=== PATIENT | male | born 1980 | race Caucasian/White ===

== ENCOUNTER → 2017-02-23 | Outpatient (CLI) | payer OTHER ==
[~2017-02-23] MED LIST: ABL/5 PO; LAMO200T32 PO
[2017-02-23 12:47] LABS: CALCIUM 8.9 mg/dl (8.5-10.1)
[2017-02-23 12:56] LABS: ALB/GLOB RATIO 1.3 (0.9-2); ALT/SGPT 26 U/L (12-78); AST/SGOT 19 U/L (15-37); BLOOD UREA NITROGEN 13 mg/dl (7-18); BUN/CREATININE RATIO 15.8 (10-20); CARBON DIOXIDE 24 mmol/L (21-32); CHLORIDE 107 mmol/L (98-107); CHOLESTEROL 155 mg/dl (0-200); CREATININE 0.84 mg/dl (0.60-1.40); GLUCOSE 87 mg/dl (70-99); POTASSIUM 3.8 mmol/L (3.5-5.1); SODIUM 140 mmol/L (136-145); TRIGLYCERIDES 67 mg/dl (0-150); VERY LOW DENSITY LIPOPROT CALC 13 mg/dl
[2017-02-23 13:06] LABS: ALKALINE PHOSPHATASE 72 U/L (45-117); CHOLESTEROL/HDL RATIO 2.5; HDL CHOLESTEROL 63 mg/dl; LDL CHOLESTEROL CALCULATED 79 mg/dl
== END | disposition home or self-care (01) ==
LOC: C.LAB1850 11:29
PROVIDERS: ATTEND Physician Assistant Medical
DX: Z13.6 Encounter for screening for cardiovascular disorders (principal); E01.0 Iodine-deficiency related diffuse (endemic) goiter

== ENCOUNTER 2017-12-05 07:05 | Emergency (ER) | payer OTHER ==
[~2017-12-05] VITALS: Ht 182.9 cm; Wt 72.0 kg
[2017-12-05 07:07] VITALS: TEMP 36.3; Ht 182.9 cm; Wt 72.0 kg
[2017-12-05] MEDS ORDERED: ONDANSETRON INJ 2 MG/ML 2 ML VIAL IV STA (07:17)
[2017-12-05] MEDS ORDERED: SODIUM CHLORIDE 0.9% 1000ML 1,000 ML IV STA (07:17)
[2017-12-05] MEDS ORDERED: MoRPHine SULFATE 10 MG/ML CARP/VIAL IV STA (07:17)
[2017-12-05 08:05] LABS: BASO % 0.3 %; BASO ABS # 0.03 K/uL (0-0.2); EOS % 0.7 %; EOS ABS # 0.06 K/uL (0-0.5); HEMATOCRIT 43.3 % (42-52); HEMOGLOBIN 15.5 g/dL (14.0-18.0); IG# 0.02 K/uL (0.00-0.02); LYMPH % 20.5 %; LYMPH ABS # 1.82 K/uL (1.2-3.4); MEAN CELL VOLUME 86.6 fL (80-100); MEAN CORPUSCULAR HGB CONC 35.8 g/dl (32-36); MEAN PLATELET VOLUME 11.2 fL (7.4-10.4); MONO % 6.9 %; MONO ABS # 0.61 K/uL (0.11-0.59); NEUT % 71.4 %; NEUT ABS # 6.32 K/uL (1.4-6.5); PLATELET COUNT 193 K/uL (130-400); RED CELL DISTRIBUTION WIDTH CV 13.2 % (11.5-14.5); RED CELL DISTRIBUTION WIDTH SD 41.5 fL (36.4-46.3); WHITE BLOOD COUNT 8.86 K/uL (4.8-10.8)
[2017-12-05] MEDS ORDERED: KETOROLAC TROMETHAMINE 30 MG/ML VIAL IV STA (08:13)
--- NOTE | 2017-12-05 08:16 | DIAGNOSTIC IMAGING REPORT ---
CT SCAN OF THE ABDOMEN AND PELVIS WITHOUT CONTRAST CLINICAL HISTORY: Left flank pain and hematuria COMPARISON STUDY: No previous studies for comparison. TECHNIQUE: CT scan of the abdomen and pelvis was performed from the lung bases to the proximal femurs. Images are reviewed in the axial, sagittal, and coronal planes. IV contrast was not administered for this examination. A dose lowering technique was utilized adhering to the principles of ALARA. CT DOSE: 742.94 mGycm FINDINGS: Lower chest: The heart is normal in size and configuration, without pericardial effusion. The lung bases and pleural spaces are clear. Liver: The unenhanced liver is normal in size, contour, and attenuation. There is no intrahepatic biliary ductal dilatation. Gallbladder: Unremarkable. Spleen: There is a 24 mm splenic mass, possibly cystic. Pancreas: Unremarkable. Adrenal glands: Unremarkable. Kidneys: No renal calculi are visualized. There is left-sided hydronephrosis and proximal hydroureter. There is a 6 x 4 x 3 mm proximal left ureteral calculus. Bowel: There are no transition zones indicate bowel obstruction. The appendix appears normal. There is colonic diverticulosis. There are no acute peridiverticular inflammatory changes. There are fluid-filled small bowel loops, likely secondary to a mild ileus. Peritoneum: There is no intraperitoneal free air or abdominal ascites. Vasculature: The abdominal aorta is normal in course and caliber. Adenopathy: None. Pelvic viscera: The bladder, and pelvic viscera are unremarkable. Skeletal structures: There is bilateral L5 spondylolysis IMPRESSION: 1. 6 x 4 x 3 mm obstructing proximal left ureteral calculus at the L3-4 level 2. No evidence of bowel obstruction. No evidence of free air 3. Fluid-filled small bowel loops likely secondary to an ileus 4. Normal appendix. No evidence of diverticulitis 5. 24 mm splenic lesion, possibly cystic Electronically signed by: Pasquale Santana M.D. 12/05/2017 8:14 AM Dictated Date/Time: 12/05/2017 8:10 AM
[2017-12-05 08:22] LABS: ALBUMIN 4.1 gm/dl (3.4-5.0); CALCIUM 8.8 mg/dl (8.5-10.1); CREATININE 1.13 mg/dl (0.60-1.40); POTASSIUM 3.7 mmol/L (3.5-5.1)
[2017-12-05 08:25] LABS: TOTAL PROTEIN 7.7 gm/dl (6.4-8.2)
[2017-12-05 08:38] VITALS: BP 129/86; PULSE 73; O2SAT 100
[2017-12-05] MEDS ORDERED: HYDR-5688 PO (09:02)
[2017-12-05] MEDS ORDERED: TAMS0.4C38 PO (09:02)
--- NOTE | 2017-12-05 16:09 | EMERGENCY ROOM VISIT NOTE ---
ED Visit Note First contact with patient: 07:10 Chief Complaint: Abdominal pain. History of Present Illness: Mr. Bull is a 37 year-old white male who ambulates into the ED complaining of anterior lateral left lower quadrant abdominal pain. Historically patient reports denies any specific abdominal disorders or surgeries. Patient reports an acute onset of left anterior lateral lower quadrant quadrant abdominal pain that started approximately 3 hours ago. Since that time the pain has been constant. The pain is currently described as sharp. The pain is nonradiating. He has not identified any aggravating or alleviating factors related to the pain. He reports he felt he might of been constipated so he took a stool softener but vomited the medication up. Associated with his symptoms he has been having nausea and vomiting. Additionally he reports intermittently he works out with weights and does question if this could possibly be a hernia of some type. Patient denies fevers, chills, sweats, skin eruptions, skin color changes, upper respiratory tract symptoms, shortness of breath, chest pain, diarrhea, constipation, rectal bleeding, black/tarry stools, urinary symptoms, hematuria, back/flank pain, lower extremity weakness/numbness/tingling, genital paresthesias, bowel and bladder dysfunction. Review of Systems: As noted above in history of present illness. All body systems were reviewed and found to be negative as noted above. Past Medical History: Patient denies. Current Medications: Patient denies. Allergies to Medications: Patient denies. Social History: Patient is currently employed; he feels safe in his home environment; he denies tobacco use. Physical Examination: Vital Signs: Date Time Temp Pulse Resp B/P (MAP) Pulse Ox O2 Delivery O2 Flow Rate FiO2 12/05/17 09:10 18 12/05/17 08:38 73 18 129/86 100 Room Air 12/05/17 07:07 36.3 123 22 137/99 92 Room Air GENERAL: 37-year-old male in moderate distress due to pain, nontoxic-appearing, afebrile and hemodynamically stable. NEUROLOGICAL: Awake, alert and oriented to person, place and time. Answering questions appropriately and following commands. Normal gait. Good hand eye coordination. SKIN: Warm, dry and pink. No soft tissue eruptions or trauma noted. HEENT: Atraumatic and normocephalic. PERRLA. Sclera white and conjunctiva pink. Oral cavity moist and pink. Pharynx is nonerythematous or edematous. Speech normal. No lymphadenopathy. Trachea midline. No jugular venous distention. BACK: No tenderness over the bony spine. No CVA tenderness. THORAX: Lungs sounds are clear to auscultation and equal bilaterally with symmetrical chest wall. No wheezing, rales or rhonchi. No crepitus, tenderness , subcutaneous air or deformities noted. HEART: Regular rate and rhythm. No gallops, rubs or murmurs are appreciated. ABDOMEN: Flat, soft and nontender. Positive bowel sounds in all quadrants. No guarding, rigidity or organomegaly. GENITALS: Mature, circumcised penis. No external tags or lesions. No local erythema or edema. No testicular tenderness. Normal testicular lie. No palpable masses in the canal or scrotum. EXTREMITIES: Moves all extremities well on command and with purpose. All distal neurovascular statuses are intact and equal bilaterally. ED Course: Patient is assessed as noted above. Patient's medication list was reviewed. Laboratory Testing: Test 12/05/17 07:30 12/05/17 07:40 Range/Units Urine Color YELLOW Urine Appearance CLOUDY CLEAR Urine pH 7.0 4.5-7.5 Urine Specific [place] 1.022 1.000-1.030 Urine Protein NEG NEG Urine Glucose (UA) NEG NEG Urine Ketones NEG NEG Urine Occult Blood 2+ NEG Urine Nitrite NEG NEG Urine Bilirubin NEG NEG Urine Urobilinogen NEG NEG Urine Leukocyte Esterase NEG NEG Urine WBC (Auto) 1-5 0-5 /hpf Urine RBC (Auto) >30 0-4 /hpf Urine Hyaline Casts (Auto) 1-5 0-5 /lpf Urine Epithelial Cells (Auto) 20-30 0-5 /lpf Urine Bacteria (Auto) NEG NEG White Blood Count 8.86 4.8-10.8 K/uL Red Blood Count 5.00 4.7-6.1 M/uL Hemoglobin 15.5 14.0-18.0 g/dL Hematocrit 43.3 42-52 % Mean Corpuscular Volume 86.6 80-100 fL Mean Corpuscular Hemoglobin 31.0 25-34 pg Mean Corpuscular Hemoglobin Concent 35.8 32-36 g/dl Platelet Count 193 130-400 K/uL Mean Platelet Volume 11.2 7.4-10.4 fL Neutrophils (%) (Auto) 71.4 % Lymphocytes (%) (Auto) 20.5 % Monocytes (%) (Auto) 6.9 % Eosinophils (%) (Auto) 0.7 % Basophils (%) (Auto) 0.3 % Neutrophils # (Auto) 6.32 1.4-6.5 K/uL Lymphocytes # (Auto) 1.82 1.2-3.4 K/uL Monocytes # (Auto) 0.61 0.11-0.59 K/uL Eosinophils # (Auto) 0.06 0-0.5 K/uL Basophils # (Auto) 0.03 0-0.2 K/uL RDW Standard Deviation 41.5 36.4-46.3 fL RDW Coefficient of Variation 13.2 11.5-14.5 % Immature Granulocyte % (Auto) 0.2 % Immature Granulocyte # (Auto) 0.02 0.00-0.02 K/uL Sodium Level 137 136-145 mmol/L Potassium Level 3.7 3.5-5.1 mmol/L Chloride Level 103 98-107 mmol/L Carbon Dioxide Level 26 21-32 mmol/L Anion Gap 8.0 3-11 mmol/L Blood Urea Nitrogen 17 7-18 mg/dl Creatinine 1.13 0.60-1.40 mg/dl Est Creatinine Clear Calc Drug Dose 89.4 ml/min Estimated GFR () 94.4 Estimated GFR (Non- 81.4 BUN/Creatinine Ratio 15.3 10-20 Random Glucose 134 70-99 mg/dl Calcium Level 8.8 8.5-10.1 mg/dl Total Bilirubin 0.6 0.2-1 mg/dl Direct Bilirubin 0.1 0-0.2 mg/dl Aspartate Amino Transf (AST/SGOT) 23 15-37 U/L Alanine Aminotransferase (ALT/SGPT) 26 12-78 U/L Alkaline Phosphatase 83 45-117 U/L Total Protein 7.7 6.4-8.2 gm/dl Albumin 4.1 3.4-5.0 gm/dl Lipase 162 73-393 U/L Noncontrast Abdominal/Pelvic CT: Was reviewed by myself and read by the radiologist and shows 6 x 4 x 3 mm obstructing proximal left ureter calculus at the level of L3-L4, no evidence of bowel obstruction or free air, fluid filled small bowel loops likely secondary to ileus, normal-appearing appendix, no evidence of diverticulitis, 2.4 mm splenic lesion possible cystic. Patient was hydrated with normal saline and initially received 6 mg of morphine IV for pain and 4 mg of Zofran IV for nausea. Patient was reassessed multiple times during his stay in the emergency department. On reassessment patient reports she initially had some mild pain relief but then again returned and he was given 30 mg of Toradol IV. Patient was educated about today's findings and instructed on his treatment plan ; he verbalized understanding and agreement with this plan. Clinical Impression: Left ureter calculus. Decision-Making: Initially my differential diagnosis I considered left ureter calculus, diverticulitis, pyelonephritis, constipation, and other causes. Disposition: Patient discharged home in stable condition accompanied by female friend; prior to departure he was reassessed and subjectively reported he was feeling much better and rated his discomfort 2/10. Plan: Patient was placed on a sliding pain medication scale of ibuprofen, acetaminophen and [place]; his name was checked on state database and no red flags were noted and he was given appropriate narcotic precautions. Patient was prescribed Flomax 0.4 mg once a day until passage of stone. Patient was encouraged to stay well-hydrated with increased clear fluids and strain all urine and collect all stones for analysis. Patient was encouraged to follow-up with Dr. Indy French, urologist, for definitive care and treatment. Patient was encouraged to return the ED for worsening/uncontrolled pain, fevers , uncontrolled vomiting, urinary symptoms or any new/concerning symptoms.
== END 2017-12-05 09:15 | disposition home or self-care (01) ==
LOC: C.EDB 07:06 → C.EDA 09:15
DX: N20.1 Calculus of ureter (principal); K59.00 Constipation, unspecified; R11.2 Nausea with vomiting, unspecified

== ENCOUNTER → 2017-12-07 | Outpatient (CLI) | payer OTHER ==
[~2017-12-07] MED LIST changes: -ABL/5 PO; +HYDR-5688 PO; -LAMO200T32 PO; +TAMS0.4C38 PO
--- NOTE | 2017-12-07 07:56 | DIAGNOSTIC IMAGING REPORT ---
[facility] CLINICAL HISTORY: N20.1 Ureteral [id number] COMPARISON STUDY: CT scan dated 12/05/2017 FINDINGS: There is no pathologic bowel dilatation. There are no calcifications suspicious for renal calculi. 6 mm proximal left ureteral calculus described in the prior CT scan, is not visualized on conventional radiographic imaging. IMPRESSION: 1. No urinary tract calculi are visualized on conventional radiographic imaging Electronically signed by: Pasquale Santana M.D. 12/07/2017 7:55 AM Dictated Date/Time: 12/07/2017 7:53 AM
== END | disposition home or self-care (01) ==
LOC: C.RAD 07:36
PROVIDERS: ATTEND Urology
DX: N20.1 Calculus of ureter (principal)